=== PATIENT | female | born 1990 ===

== ENCOUNTER 2020-09-17 14:45 | Emergency (ER) | payer BC, SELFPAY ==
[2020-09-17 17:08] VITALS: BP 130/95; PULSE 99; RESP 18; TEMP 36.4; O2SAT 97; BMI 42.9
--- NOTE | 2020-09-17 17:18 | ED_ITS ---
HPI - Ear Problem General Chief complaint: Ear Problems Stated complaint: ear problems Time Seen by Provider: 09/17/20 17:03 Source: patient Mode of arrival: ambulatory History of Present Illness HPI Narrative: 30-year-old female with no significant past medical history presenting to the ED complaining of 1 week of left sided ear pain. Reports decreased hearing to ear/muffled sound, and chills. Was seen at urgent care on Thursday prescribed ofloxacin antibiotic drops without relief. Denies fever, sore throat, drainage from ear, recent swimming MD Complaint: ear pain and decreased hearing Related Data Previous Rx's Medication Instructions Recorded amoxicillin 875 mg-potassium 1 tab PO Q12H 7 Days #14 tab 09/17/20 clavulanate 125 mg tablet (Augmentin) ciprofloxacin 0.3 %-dexamethasone 4 drp OTIC (EARS) BID 7 Days #7.5 09/17/20 0.1 % ear drops,suspension ml (Ciprodex) Allergies Allergy/AdvReac Type Severity Reaction Status Date / Time No Known Allergies Allergy Unverified 10/27/19 19:13 [No Known Allergies*] Review of Systems Review of Systems: Constitutional: No Fever, No Chills ENT/Mouth: + Ear Pain, No Nasal Congestion, No Sinus Pain, No Hoarseness, No sore throat, No Rhinorrhea, No Swallowing Difficulty Respiratory: No Cough Gastrointestinal: No Nausea, No Vomiting Musculoskeletal: No joint pain Skin: No Skin Lesions, No rash Neuro: No Weakness, No Numbness, No Paresthesias Yes all other systems are reviewed and are negative [facility] Past Medical History Attestation statement: The following information was validated with the patient. Medical History (Updated 09/17/20 @ 17:19 by CHRIS Hamlin) delivery delivered No acute medical problems Social History Social History Advance Directives: No Advance Directives Information Provided: No Patient : No Physical Exam Vital Signs: Vital Signs: Last Vital Signs Temp 97.6 F 09/17/20 17:08 Pulse 99 09/17/20 17:08 Resp 18 09/17/20 17:08 BP 130/95 H 09/17/20 17:08 Pulse Ox 97 09/17/20 17:08 Body Mass Index 42.9 Const: General: cooperative and healthy appearing Orientation/consciousness: patient oriented x3 Limitations: no limitations HENMT: Other: Left ear canal swollen unable to visualize TM with white debris in canal. Mastoid WNL. Pinna nontender Head: Yes normal to inspection Ears: hearing grossly normal bilaterally, TM normal on the right, mastoids normal, no periauricular adenopathy, hearing grossly not impaired and unable to visualize TM on the left General nose exam: Normal external nose present Face and sinus: Yes normal facial exam Mouth: Normal oral and palatal mucosa present Throat: Yes posterior oropharynx normal, Yes tonsils normal, Yes uvula midline and No peritonsillar mass Eyes: General: appearance normal, both eyes and all related structures EOM: EOMs intact bilaterally Neck: Neck: Yes normal visual inspection Resp: Effort & Inspection: normal respiratory effort Auscultation: clear to auscultation bilaterally Cardio: Rate: regular rate Heart sounds: S1 normal heart sound present and S2 normal heart sound present Skin: Rashes: no rashes Wounds: no wounds Neuro: General: patient oriented x3 Gait exam (Neuro): Normal gait present Extrem: General: Yes normal to inspection Course Course Course Narrative: Left ear irrigated with hydrogen peroxide and water, still unable to visualize TM Ear wick inserted into left ear MDM - Ear MDM Narrative Medical decision making narrative: 30-year-old female with no significant past medical history presenting to the ED complaining of 1 week of left sided ear pain. On exam vital signs stable, NAD/well-appearing, physical exam as above her concern for otitis externa and possible otitis media. Lower concern for fungal infection. Mastoids WNL. Will prescribe patient antibiotic drops with steroid and p.o. Augmentin, is to follow-up with ENT/her PCP in a couple days Discharge Plan Discharge Clinical Impression: Otitis externa Qualifiers: Otitis externa type: unspecified type Chronicity: acute Laterality: left Qualified Code(s): H60.502 - Unspecified acute noninfective otitis externa, left ear Otitis media Qualifiers: Otitis media type: unspecified Chronicity: acute Qualified Code(s): H66.90 - Otitis media, unspecified, unspecified ear Patient Disposition: Home, Self-Care Instructions: Ear Infection (ED) Additional Instructions: You have an external and internal your infection, Augmentin as oral antibiotic, please take as prescribed In addition Ciprodex is an ear drop with a steroid which will help with your inf ection/inflammation And ear wick was inserted in your ear, this will fall off on its own, it will help the ear drops make it all the way to her eardrum take ear wick out in 2 days if does not fall out on its own Please follow-up with her doctor in 3-5 days If her symptoms persist or worsen, become unbearable, you have fever, drainage from her ear, persistent symptoms please return to the ED Prescriptions: New amoxicillin-pot clavulanate [Augmentin] 875-125 mg tablet 1 tab PO Q12H 7 Days Qty: 14 RF: 0 ciprofloxacin-dexamethasone [Ciprodex] 0.3-0.1 % drops,suspension 4 drp otic (ears) BID 7 Days Qty: 7.5 RF: 0 Referrals: Ramos Javed [Physician] - 2 days Stand Alone Forms: Work/School Release
== END 2020-09-17 17:38 | disposition home or self-care (01) ==
PROVIDERS: Emergency Provider Emergency Medicine Emergency Medical Services; PCP Internal Medicine
DX: H60.502 Unspecified acute noninfective otitis externa, left ear (principal); H66.90 Otitis media, unspecified, unspecified ear; H92.02 Otalgia, left ear; Z79.899 Other long term (current) drug therapy
CPT/HCPCS: 99282; 99283

== ENCOUNTER 2023-08-25 09:45 | Emergency (ER) | payer BC, SELFPAY ==
--- NOTE | ~2023-08-25 | XR_ITS ---
EXAMINATION: XR CHEST CLINICAL INFORMATION: Cough COMPARISON: None available. TECHNIQUE: 2 views of the chest were obtained. FINDINGS: Lungs clear. No pleural effusions. Heart and pulmonary vessels normal. XR/XR chest 2V IMPRESSION: No active disease.
[2023-08-25 09:52] VITALS: BP 182/100; PULSE 102; RESP 20; TEMP 37.4; O2SAT 100; BMI 37.8
--- NOTE | 2023-08-25 10:32 | ED_ITS ---
HPI - General Adult General Chief complaint: Upper Respiratory Symptoms Stated complaint: asthma Time Seen by Provider: 08/25/23 10:13 Source: patient Mode of arrival: ambulatory Limitations: no limitations History of Present Illness ED Provider: AMARJIT ANDERSON PA-C HPI narrative: 33 year old female with pmhx significant for asthma presents to the ED today for evaluation of shortness of breath and cough productive of clear sputum x2 weeks. Reports history of asthma however typically only has exacerbations during the winter time. She does not have a home inhaler and will usually use her family member's. Admits that over the last 2 weeks she has had more frequent exacerbations. Reports waking up this morning with chest tightness and felt as though she needed a breathing treatment. Endorses associated cough with clear sputum. Denies fever/ chills, N/V. Denies known sick contacts. Denies chest pain, palpitations, calf pain. Denies recent travel/long car rides. Related Data Previous Rx's ?Medication ?Instructions ?Recorded amoxicillin 875 mg-potassium 1 tab PO Q12H 7 days #14 tabs 09/17/20 clavulanate 125 mg tablet (Augmentin) ciprofloxacin 0.3 %-dexamethasone 4 drp otic (ears) BID 7 days #7.5 09/17/20 0.1 % ear drops,suspension mL (Ciprodex) prednisone 20 mg tablet 40 mg (2 x 20 mg) PO DAILY 4 days 08/25/23 #8 tabs Allergies Allergy/AdvReac Type Severity Reaction Status Date / Time No Known Allergies Allergy Verified 08/25/23 09:54 [No Known Allergies*] Review of Systems 2 Review of Systems: Constitutional: No fever, chills, fatigue, night sweats, weight changes ENT/Mouth: No ear pain, hearing loss, nasal congestion, sinus pain, rhinorrhea, sore throat Eyes: No eye pain, swelling, redness, vision changes, discharge Cardio: No chest pain, palpitations, [place], orthopnea, peripheral edema Pulm: No dyspnea, hemoptysis, +wheezing, +sob, +cough, +sputum production GI: No nausea, vomiting, hematemesis, abdominal pain, diarrhea, constipation, hematochezia, melena : No irregular bleeding, dysuria, frequency, urgency, hesitancy, hematuria, flank pain, urinary flow changes, urinary incontinence or retention MSK: No back pain, neck pain, joint pain, myalgias Skin: No lesions, rashes Neuro: No weakness, numbness, paresthesias, LOC, dizziness, headache Psych: No anxiety/panic, depression, SI/HI, AH/VH All other systems reviewed and are negative. [facility] Past Medical History Attestation statement: The following information was validated with the patient. Source: old records reviewed and nursing notes reviewed Medical History delivery delivered No acute medical problems Social History Social History Smoked in Last 30 Days: No Use of substances other than those prescribed or required for medical reasons: Yes Substance Use Type: Marijuana Advance Directives: No Do you have a plan to hurt others: No Plan Physical Exam ED Vital Signs: Vital Signs - 24 hr 08/25/23 09:52 08/25/23 11:00 08/25/23 12:00 Temperature 99.4 F Pulse Rate 102 H 87 114 H Respiratory Rate 20 18 20 Blood Pressure 182/100 H Pulse Oximetry 100 Oxygen Delivery Method Room Air BMI result Body Mass Index 37.8 Patient hypertensive and tachycardic, vitals otherwise wnl Const General: cooperative, healthy appearing, comfortable and no acute distress Orientation/consciousness: patient oriented x3 Limitations: no limitations [facility] Head: Yes normal to inspection, Yes No palpable skull fracture present, Yes normocephalic and Yes atraumatic Eyes General: appearance normal, both eyes and all related structures Pupils: Equal, round and reactive pupils present Neck Neck: Yes normal visual inspection, Yes full ROM, Yes no lymphadenopathy and Yes no JVD Chest Chest palpation & inspection: normal inspection of the chest and normal palpation of entire chest wall Resp Other: + no respiratory distress or increased effort of breathing. no tripoding. speaking in full complete sentences. lungs with expiratory wheezes throughout, diminished at bases. Cardio Rate: regular rate Rhythm: regular rhythm Skin General skin exam: no rashes or lesions noted Neuro General: patient oriented x3 Cranial nerves: Yes Equal, round and reactive pupils present Course Course Course Narrative: 1128-- CBC without leukocytosis. No anemia, H&H stable. Chemistry showing hypokalemia to 3.1, normal magnesium. 20 IV potassium ordered for repletion which patient is agreeable with. no other acute electrolyte abnormality requiring intervention. normal renal function. troponin undetectable > Unlikely ACS. EKG showing sinus rhythm with marked sinus arrhythmia and prolonged QT at 410 which may be secondary to low potassium. no acute ischemic changes or ST elevations. no previous EKGs to compare to. she has tested negative for covid/flu/rsv. CXR without infiltrate or consolidation. 1400-- On re-evaluation, patient reports significant improvement in breathing. minimal expiratory wheezes noted following treatment. i feel comfortable discharging patient home with prednisone which she is agreeable with. Patient has remained stable throughout ED visit today. Discussed worrisome signs and symptoms and when to return to the ED. All questions answered at this time. Patient is agreeable with disposition and stable for discharge. Medications Administered Discontinued Medications Generic Name Dose Route Start Last Admin Trade Name Freq PRN Reason Stop Dose Admin Albuterol Sulfate 2 puff 08/25/23 11:53 08/25/23 12:00 Albuterol Sulfate 90 Mcg 8 Gm Inhaler INHALE 08/25/23 11:54 2 puff ONCE ONE Administration Albuterol Sulfate 2.5 mg/ 0 mg 08/25/23 10:54 08/25/23 11:00 Albuterol/Ipratropium 3 ml INHALE 08/25/23 10:55 1 dose ONCE ONE Administration Potassium Chloride 10 meq in 100 mls @ 100 mls/hr 08/25/23 11:30 08/25/23 13:07 Potassium Chloride/H20 IV 08/25/23 13:29 100 mls/hr Q1H YONI Administration Methylprednisolone Sodium Succinate 125 mg 08/25/23 10:31 08/25/23 10:55 Methylprednisolone Sod Succ 125 Mg/2 Ml Vial IVPUSH 08/25/23 10:32 125 mg ONCE ONE Administration Medical Decision Making Medical Decision Making MDM Narrative: 33 year old female with pmhx significant for asthma presents to the ED today for evaluation of shortness of breath and cough productive of clear sputum x2 weeks. Patient hypertensive and tachycardic, vitals otherwise wnl. no respiratory distress or increased effort of breathing. no tripoding. speaking in full complete sentences. lungs with expiratory wheezes throughout, diminished at bases. Differential diagnosis includes asthma exacerbation, pneumonia, bronchitis, anemia, electrolyte derangement, ACS, arrhythmia. Unlikely PE, pleural effusion. Plan for labs, ekg, trop, cxr, ed bronch protocol, and re-evaluation. Differential Diagnosis Differential Diagnoses: The differential diagnosis associated with the presentation includes as above. Admission/Observation Consideration of admission/observation: Escalation of care including admission/observation considered admission considered Lab Data MDM Lab Attestation statement: I reviewed the patient's lab results. as above 08/25/23 10:50 08/25/23 10:50 Labs: Lab Results 08/25/23 08/25/23 Range/Units 10:16 10:50 WBC 7.5 (4.8-10.8) X10*3/uL RBC 4.23 (4.20-5.50) X10*6/uL Hgb 14.0 (12.0-16.0) g/dl Hct 40.2 (37.0-47.0) % MCV 95.0 (80.0-98.0) fL MCH 33.1 H (27.0-33.0) pg MCHC 34.8 (31.0-35.0) g/dl RDW 13.2 (11.0-16.0) % Plt Count 235 (160-400) X10*3/uL MPV 10.6 (9.4-12.3) fL Immature Gran % (Auto) 0.3 (0.0-0.4) % Neut % (Auto) 79.7 H (45-73) % Lymph % (Auto) 10.4 L (20-40) % [place] % (Auto) 8.2 (2-11) % Eos % (Auto) 0.7 (0-4) % Baso % (Auto) 0.7 (0-2) % Lymph # (Auto) 0.8 L (1.2-4.9) X10*3/uL [place] # (Auto) 0.6 (0.1-1.2) X10*3/uL Eos # (Auto) 0.1 (0.0-0.4) X10*3/uL Baso # (Auto) 0.1 (0.0-0.2) X10*3/uL Abs Immat Gran (auto) 0.02 (0.00-0.03) X10*3/uL Absolute Neuts (auto) 6.0 (2.0-8.3) x10*3/uL Absolute Nucleated RBC 0.000 (0.0-0.012) X10*3/uL Nucleated RBC % (auto) 0.0 (0.0-0.2) /100WBC Sodium 142 (135-145) mmol/L Potassium 3.1 L (3.3-5.1) mmol/L Chloride 106 (96-108) mmol/L Carbon Dioxide 25 (22-29) mmol/L Anion Gap 14 (12-20) BUN 11 (9-16) mg/dL Creatinine 0.75 (0.5-1.4) mg/dL Estim Creat Clear Calc 121.3 Estimated GFR > 60 Random Glucose 108 (60-115) mg/dL Calcium 9.7 (8.4-10.2) mg/dL Magnesium 2.0 (1.6-2.6) mg/dL Troponin I High Sens < 2.7 (<3.5-17.0) ng/L Influenza Type A (PCR) NEGATIVE (Negative) Influenza Type B (PCR) NEGATIVE (Negative) RSV RNA Qual (PCR) NEGATIVE (Negative) SARS-CoV-2 RNA (RT-PCR) NEGATIVE (Negative) Independent Interpretation I performed an independent interpretation of an: EKG and Plain X-Ray Interpretation: EKG showing sinus rhythm with marked sinus arrhythmia and prolonged QT at 410 which may be secondary to low potassium. no acute ischemic changes or ST elevations. no previous EKGs to compare to. Chest xray without infiltrate or consolidation, agree with radiologist's interpretation. Radiology Impression Discussion of test interpretation with radiology: I have reviewed the radiologist's reading. Radiologist Impression: EXAMINATION: XR CHEST CLINICAL INFORMATION: Cough COMPARISON: None available. TECHNIQUE: 2 views of the chest were obtained. FINDINGS: Lungs clear. No pleural effusions. Heart and pulmonary vessels normal. XR/XR chest 2V IMPRESSION: No active disease. Prescription Management I considered prescription management with: Other (albuterol, prednisone) Chronic Conditions Patient?s care impacted by: Other (asthma) Social Determinants Patient?s care significantly limited by Social Determinants of Health including: Other Social Determinant of Health Critical Care Time Critical Care Time Critical Care Time: Yes Total Critical Care Time: 31 Attestation: Critical care time in the amount of 31 minutes has been provided to the patient in terms of direct patient care, frequent reevaluation, IV potassium, consultation with RT, review and interpretation of medical data and results, and management of potentially life-threatening conditions. This is all outside of any medical procedures. Discharge Plan Discharge Clinical Impression: Asthma exacerbation, Acute hypokalemia Patient Disposition: Home, Self-Care Instructions: Asthma (ED), Potassium Content of Foods List (ED), Hypokalemia (ED) Additional Instructions: Your blood work today showed low potassium levels, otherwise reassuring. Your potassium was repleted in ED. Please follow up with your PCP in 2 weeks to have levels re-checked. You chest xray is normal. You tested negative for covid/flu/rsv. Prednisone is a steroid that has been sent to your pharmacy. You received a dose of this in ED today. Please take your next dose tomorrow. You have also been provided with inhaler to use as needed for wheezing/ shortness of breath. If you find yourself using this more frequently without improvement, please return to the ED for further evaluation. Follow up with your PCP. Return with new or worsening symptoms. In the case of an emergency call 911. Prescriptions: New prednisone 20 mg tablet 40 mg PO DAILY 4 Days Qty: 8 0RF No Action amoxicillin-pot clavulanate [Augmentin] 875-125 mg tablet 1 tab PO Q12H 7 Days Qty: 14 0RF ciprofloxacin-dexamethasone [Ciprodex] 0.3-0.1 % drops,suspension 4 drp otic (ears) BID 7 Days Qty: 7.5 0RF Referrals: Denia Villanueva MD [Primary Care Provider] - Stand Alone Forms: Work/School Release Interventions: ED Discharge Assessment Last Done: 08/25/23 14:39 Discharge Date/Time: 08/25/23 14:39 Print Language: Occitan
--- NOTE | 2023-08-25 10:35 | ECG_ITS ---
Test Reason : chest tightness Blood Pressure : / mmHG Vent. Rate : 089 BPM Atrial Rate : 089 BPM P-R Int : 146 ms QRS Dur : 078 ms QT Int : 410 ms P-R-T Axes : 051 053 027 degrees QTc Int : 498 ms Sinus rhythm with marked sinus arrhythmia Prolonged QT Abnormal ECG No previous ECGs available Referred By: Katelyn Robertson Electronically Signed By:RODOLFO QUARLES MD
[2023-08-25 10:54] LABS: MANUAL DIFF FLAG NO
[2023-08-25] MEDS: methylPREDNISolone Sod Succ 125 MG/2 ML VIAL IVPUSH (10:55)
[2023-08-25 10:57] LABS: Influenza A PCR NEGATIVE (Negative); Influenza B PCR NEGATIVE (Negative); Resp Syncy Virus RNA Qual PCR NEGATIVE (Negative); SARS COV2 PCR INHOUSE NEGATIVE (Negative)
[2023-08-25 10:57] LABS: Basophils Absolute Auto 0.1 X10*3/uL (0.0-0.2); Basophils Percent Auto 0.7 % (0-2); Eosinophils Absolute Auto 0.1 X10*3/uL (0.0-0.4); Eosinophils Percent Auto 0.7 % (0-4); Hematocrit 40.2 % (37.0-47.0); Imm Gran Abs Auto 0.02 X10*3/uL (0.00-0.03); Imm Gran Pct Auto 0.3 % (0.0-0.4); Lymphocytes Absolute Auto 0.8 X10*3/uL (1.2-4.9); Lymphocytes Percent Auto 10.4 % (20-40); Mean Corpuscular HGB Conc 34.8 g/dl (31.0-35.0); Mean Corpuscular Hemoglobin 33.1 pg (27.0-33.0); Mean Platelet Volume 10.6 fL (9.4-12.3); Monocytes Absolute Auto 0.6 X10*3/uL (0.1-1.2); Monocytes Percent Auto 8.2 % (2-11); Neutrophils Percent Auto 79.7 % (45-73); Platelet Count 235 X10*3/uL (160-400); Red Blood Count 4.23 X10*6/uL (4.20-5.50); Red Cell Distribution Width 13.2 % (11.0-16.0); White Blood Count 7.5 X10*3/uL (4.8-10.8)
[2023-08-25 11:00] VITALS: PULSE 87; RESP 18; O2SAT 99
[2023-08-25] MEDS: Albuterol Sulfate 2.5 MG, Albuterol/Iprat 2.5/0.5MG 3 ML 3 ML INHALE (11:00)
[2023-08-25 11:10] LABS: Anion Gap 14 (12-20); Blood Urea Nitrogen 11 mg/dL (9-16); Calcium 9.7 mg/dL (8.4-10.2); Carbon Dioxide 25 mmol/L (22-29); Chloride 106 mmol/L (96-108); Creatinine Clr Calc Pharmacy 121.3; Estimated Glomerular Filt Rate > 60; Glucose Random 108 mg/dL (60-115); Potassium 3.1 mmol/L (3.3-5.1); Sodium 142 mmol/L (135-145)
[2023-08-25 11:28] LABS: Troponin-I High Sensitivity < 2.7 ng/L (<3.5-17.0)
[2023-08-25] MEDS: Potassium Chloride/H20 10 MEQ/100 ML PIGGYBACK 100 MEQ IV ×2 (11:49→13:07)
[2023-08-25 12:00] VITALS: PULSE 114; RESP 20; O2SAT 97
[2023-08-25] MEDS: Albuterol Sulfate 90 MCG 8 GM INHALER 2 PUFF INHALE (12:00)
[2023-08-25 13:47] VITALS: BP 147/104; PULSE 96; RESP 17; TEMP 36.7; O2SAT 99
--- NOTE | 2023-08-25 14:08 | ECG_ITS ---
Test Reason : HYPOKALEMIA Blood Pressure : / mmHG Vent. Rate : 090 BPM Atrial Rate : 090 BPM P-R Int : 142 ms QRS Dur : 082 ms QT Int : 410 ms P-R-T Axes : 040 050 025 degrees QTc Int : 501 ms Normal sinus rhythm Prolonged QT Abnormal ECG When compared with ECG of 25-AUG-2023 11:02, No significant change was found Referred By: Katelyn Robertson Electronically Signed By:RODOLFO QUARLES MD
[2023-08-25 14:39] VITALS: BP 147/104; PULSE 96; RESP 17; TEMP 36.7; O2SAT 99
== END 2023-08-25 14:39 | disposition home or self-care (01) ==
PROVIDERS: Physician Assistant Medical; Emergency Provider Student in an Organized Health Care Education/Training Program; PCP Internal Medicine
DX: J45.901 Unspecified asthma with (acute) exacerbation (principal); R07.89 Other chest pain; I49.9 Cardiac arrhythmia, unspecified; Z03.818 Encounter for observation for suspected exposure to other biological agents ruled out; Z79.899 Other long term (current) drug therapy
CPT/HCPCS: 0241U; 36415; 71046; 80048; 83735; 84484; 85025; 93005; 94640; 96365; 96375; 99284; 99285; J2919; J3480

== ENCOUNTER → 2023-08-25 10:35 | Outpatient (BNV) | payer BC, SELFPAY | PROVIDERS: Emergency Provider Student in an Organized Health Care Education/Training Program; PCP Internal Medicine; Visit Provider Internal Medicine Cardiovascular Disease | DX: R94.31 Abnormal electrocardiogram [ECG] [EKG] (principal) | CPT/HCPCS: 93010 ==